=== PATIENT | male | born 1960 | race Caucasian/White ===

== ENCOUNTER 2018-03-06 11:11 | Inpatient (IN) | payer OTHER ==
[~2018-03-06] VITALS: Ht 170.2 cm; Wt 108.9 kg
--- NOTE | 2018-03-06 11:50 | ED CARDIAC/CP/PALPITATIONS ---
History of Present Illness General Chief Complaint: Chest Pain Stated Complaint: CP Source: patient Exam Limitations: no limitations Vital Signs & Intake/Output Vital Signs & Intake/Output Vital Signs Date Time Temp Pulse Resp B/P B/P Pulse O2 O2 Flow FiO2 Mean Ox Delivery Rate 03/06 1451 98.9 93 18 159/91 95 Room Air Room Air 03/06 1225 96 Nasal 2.0L Cannula 03/06 1123 98.2 82 20 135/68 90 Room Air Allergies Coded Allergies: Anesthetics - Amide Type (VARIOUS 03/06/18) Reconcile Medications Lisinopril/Hydrochlorothiazide (Lisinopril-Hctz 20-12.5 MG Tab) 20 MG-12.5 MG TABLET 1 TAB PO DAILY HEART (Reported) Triage Note: PER PT STRTED AT 0300 WITH MID BACK PAIN RADIATING INTO HEAD AND INTO EPIGASTRIC AREA , REPORTS WAS SWEATY AND USUALLY DOES NOT RADIATING TO HEAD Triage Nurses Notes Reviewed? yes Onset: Abrupt Duration: hour(s): (10), constant, continues in ED, getting worse Timing: single episode today Quality/Severity: severe, pressure, sharp Location: epigastric Radiation: back Activities at Onset: none Prior Chest Pain/Card Workup: no prior chest pain, no prior cardiac workup Modifying Factors: Worsens With: movement, palpation. Nitro Today/Relief: no nitro taken today Aspirin Today: 325 mg x 1, provided by ED Associated Symptoms: abdominal pain, back pain HPI: 57-year-old male past medical history hypertension, sleep apnea presents for evaluation of epigastric pain, upper quadrant pain and shortness breath. Patient states symptoms started around 3:00 this morning woke him from sleep. The pain is located initially in the epigastric area radiating up into his chest and head. He has now localized to the epigastric and right upper quadrant area radiating to the back. There are no alleviating or aggravating factors. He no longer has a headache no neck pain. He reports associated shortness of breath and diaphoresis. He is a current every day smoker. He reports cough but no hemoptysis. No fevers no nausea vomiting or diarrhea. He had a normal bowel movement this morning. He does report that he had similar symptoms a few weeks ago with right upper quadrant pain and indigestion that passed on its own. He's never had a heart attack no history of DVT. No lower extremity edema. (Patrick Slade) Past History Travel History Traveled to [place] past 21 day No Medical History Neurological: NONE EENT: NONE Cardiovascular: hypertension Respiratory: SLEEP APNEA Gastrointestinal: NONE Hepatic: NONE Musculoskeletal: NONE Psychiatric: NONE Endocrine: NONE Psychosocial History What is your primary language Japanese Tobacco Use: Never used (Patrick Slade) Medical History Any Pertinent Medical History? see below for history Surgical History Surgical History: unobtainable Family History Hx Contributory? No (Fred Omalley DO) Review of Systems Review of Systems Constitutional: Reports: no symptoms. EENTM: Reports: no symptoms. Respiratory: Reports: short of breath. Cardiovascular: Reports: see HPI, chest pain. GI: Reports: see HPI, abdominal pain. Genitourinary: Reports: no symptoms. Musculoskeletal: Reports: no symptoms. Skin: Reports: no symptoms. Neurological/Psychological: Reports: no symptoms. Hematologic/Endocrine: Reports: no symptoms. Immunologic/Allergic: Reports: no symptoms. All Other Systems: Reviewed and Negative (Patrick Slade) Physical Exam Physical Exam General Appearance: well developed/nourished, no apparent distress, alert, awake Head: atraumatic, normal appearance Eyes: Bilateral: PERRL, EOMI, other (scleral icterus). Ears, Nose, Throat: normal pharynx, normal ENT inspection, hearing grossly normal Neck: normal inspection, supple, full range of motion Respiratory: chest non-tender, no respiratory distress, rhonchi, wheezing Cardiovascular: regular rate/rhythm, normal peripheral pulses Peripheral Pulses: 2+ radial (R), 2+ radial (L) Gastrointestinal: normal bowel sounds, no organomegaly, distention, tenderness ( EPIGASTRIC AND RUQ) Back: normal inspection, normal range of motion Extremities: normal inspection, normal range of motion, no edema Neurologic/Psych: no motor/sensory deficits, awake, alert, oriented x 3, normal gait Skin: intact, normal color, warm/dry Lymphatic: no anterior cervical danie (Patrick Slade) Core Measures ACS in differential dx? No CVA/TIA Diagnosis No Sepsis Present: No Sepsis Focused Exam Completed? No (Fred Omalley DO) Progress Differential Diagnosis: AMI, aortic dissection, cholecystitis, CHF/pulm edema, costochondritis, myocarditis, pancreatitis, pericarditis, pneumonia, pneumothorax, pulmonary embolism, PUD/GERD, PVCs/PACs, gallstone pancreatitis, malignancy Plan of Care: Orders Procedure Date/time Status Nothing by Mouth 03/07 B Active Patient Data 03/06 1648 Active ED Holding Orders 03/06 1634 Active Admit to inpatient 03/06 1634 Active Vital Signs 03/06 1634 Active Code Status 03/06 1634 Active BLOOD CULTURE 03/06 1607 Active TROPONIN LEVEL 03/06 1540 Complete EKG 03/06 1540 Active URINALYSIS 03/06 1506 Active TYPE & SCREEN (NOT X-MATCH) 03/06 1440 Active Add-on Test (ER Only) 03/06 1435 Active Add-on Test (ER Only) 03/06 1255 Active AEROSOL (GEN) 03/06 1227 Complete Add-on Test (ER Only) 03/06 1225 Active Add-on Test (ER Only) 03/06 1223 Active LIPASE 03/06 1140 Complete ETHANOL 03/06 1140 Complete DIRECT BILIRUBIN 03/06 1140 Complete Telemetry/Blow Pit Operator 03/06 1135 Active Add-on Test (ER Only) 03/06 1133 Active TROPONIN LEVEL 03/06 1116 Complete PARTIAL THROMBOPLASTIN TIME 03/06 1116 Complete PROTHROMBIN TIME 03/06 1116 Complete MAGNESIUM 03/06 1116 Complete D-DIMER 03/06 1116 Complete COMPREHENSIVE METABOLIC PANEL 03/06 1116 Complete CBC WITHOUT DIFFERENTIAL 03/06 1116 Complete EKG 03/06 1114 Active Current Medications Sig/Cherie Start time Last Medication Dose Stop Time Status Admin Lactated Ringer's 1,000 ML .Q5H 03/06 1730 AC (Lactated Ringers) Laboratory Tests 03/06/18 1343: Troponin I < 0.01 03/06/18 1140: Anion Gap 16, Estimated GFR > 60, BUN/Creatinine Ratio 17.1, Glucose 183 H, Calcium 9.6, Magnesium 1.8, Total Bilirubin 6.9 H, Direct Bilirubin 5.9 H, AST 208 H, ALT 323 H, Alkaline Phosphatase 365 H, Troponin I < 0.01, Total Protein 6.9, Albumin 4.2, Globulin 2.7, Albumin/Globulin Ratio 1.6, Lipase 4602 H, PT 12.2, INR 1.12, APTT 32, D-Dimer High Sensitivty 5192 H, CBC w Diff MAN DIFF ORDERED, RBC 5.13, MCV 89.8, MCH 30.8, MCHC 34.3, RDW 12.7, MPV 7.7, Gran % 85.3 H, Lymphocytes % 8.8 L, Monocytes % 5.0, Eosinophils % 0.7, Basophils % 0.2, Absolute Granulocytes 14.2 H, Absolute Lymphocytes 1.5, Absolute Monocytes 0.8 H, Absolute Eosinophils 0.1, Absolute Basophils 0, Platelet Estimate INCREASED, Normocytic RBCs VERIFIED, Normochromic RBCs VERIFIED, Serum Alcohol < 10.0 Microbiology 03/06 1705 BLOOD: Blood Culture - RECD 03/06 163 BLOOD: Blood Culture - RECD Patient seen and evaluated. He is here reporting acute onset of epigastric and right-sided chest pain that woke him up from sleep. He states the pain radiates around the side to the back. Associated with shortness of breath. He did have a similar episode a few weeks ago. On initial evaluation patient is satting 90% on room air. Vitals otherwise stable. He has some diffuse wheezing and rhonchi bilaterally. He is a current every day smoker. DuoNeb and aspirin ordered basic blood work and a CT of the chest on the pelvis ordered. Blood work shows a significantly elevated T bili of 7. Direct bili or added on. LFTs elevated. Lipase 4600. White blood cell count 60,000. Patient is afebrile. Suspect gallstone pancreatitis. Waiting on CT scan results. Patient declines any additional pain medications as he is feeling better. Troponin negative EKG unchanged. CTA shows evidence of cholecystitis with possible choledocholithiasis. Spoke with Dr. Malik for general surgery for that the patient needs a GI consult and ERCP before cholecystectomy. Spoke with Dr. Edgar who recommends admission, IV Unasyn and ERCP. Blood cultures ordered. Patient is afebrile still declining pain medication. CTA of the chest was nondiagnostic for PE. Patient does have a significant elevated d-dimer of 5000 and was mildly hypoxic and short of breath on initial evaluation. He has no DVT risk factors. No lower extremity edema or recent surgery. A VQ scan was ordered however patient refused this. He is alert and oriented 3 he is able to make this decision. Discussed with him about the potential life-threatening results of PE. He understands this risk and still declines. Repeat EKG and troponin negative and unchanged. Patient will be admitted for IV antibiotics, ERCP, GI consult, surgical consult, serial labs, IV fluids, IV pain meds, nothing by mouth. Case discussed with Dr. Omalley he agrees. Diagnostic Imaging: Viewed by Me: Radiology Read. Discussed w/RAD: Radiology Read. CXR Impression: PATIENT: ROBERT ELLIOTT PRESENT AGE : 57 PATIENT ACCOUNT NO: [id number] : 62 LOCATION: [facility] ORDERING PHYSICIAN: Patrick THOMAS SERVICE DATE: 03/06/18 EXAM TYPE: RAD - XRY- CHEST XRAY, TWO VIEWS EXAMINATION: XR CHEST CLINICAL INFORMATION: Back pain, cough, and low saturations. COMPARISON: None available. TECHNIQUE: 2 views of the chest were obtained. FINDINGS: There is symmetric lung inflation. There is no focal consolidation, pleural effusion, or pneumothorax. Aorta is tortuous and a CTA has been ordered at the time of this study. There are no acute osseous findings. Thoracic spondylosis. IMPRESSION: No acute pulmonary process. DICTATED BY: Fred Langford MD DATE/TIME DICTATED:03/06/181304 [place] MACHINE OPERATOR: REY DATE/TIME TRANSCRIBED:03/06/181304 CONFIDENTIAL, DO NOT COPY WITHOUT APPROPRIATE AUTHORIZATION. <Electronically signed in Other Vendor System> SIGNED BY: Fred Langford MD 03/06/181310 Initial ED EKG: normal sinus rhythm, left atrial abn, ivcd (Patrick Slade) Departure Departure Disposition: STILL A PATIENT Condition: Stable Clinical Impression Primary Impression: Obstructive jaundice Secondary Impressions: Gallstone pancreatitis Referrals: Ike Cortez MD (PCP/Family) Departure Forms: Customer Survey General Discharge Information Admission Note Spoke With: Nova GAUTAM,Marquez Documentation of Exam: Documentation of any treatments & extenuating circumstances including Concerns Regarding Discharge (functional status, medication knowledge or non-compliance, living conditions, etc.) that warrant an admission rather than observation: [IV antibiotics, GI consult, surgical consult, ERCP, serial labs, nothing by mouth, IV fluids] (Patrick Slade) PA/MICROSTRATEGY ARCHITECT DEVELOPER Co-Sign Statement Statement: ED Attending supervision documentation- [X] I saw and evaluated the patient. I have also reviewed all the pertinent lab results and diagnostic results. I agree with the findings and the plan of care as documented in the PA's/MICROSTRATEGY ARCHITECT DEVELOPER's documentation. [] I have reviewed the ED Record and agree with the PA's/MICROSTRATEGY ARCHITECT DEVELOPER's documentation. [] Additions or exceptions (if any) to the PAs/MICROSTRATEGY ARCHITECT DEVELOPER's note and plan are summarized below: [ I've seen and personally examined the patient and I agree with the PAs evaluation. He was in mild distress on my evaluation. He complained of bilateral upper abdominal pain] (Fred Omalley DO) Critical Care Note Critical Care Note Critical Care Time: non-applicable (Fred Omalley DO)
[2018-03-06 11:51] LABS: ABSOLUTE BASOPHIL COUNT 0 /CUMM (0.0-0.2); ABSOLUTE EOSINOPHIL COUNT 0.1 /CUMM (0.0-0.7); ABSOLUTE GRANULOCYTE CT 14.2 /CUMM (1.4-6.5); ABSOLUTE LYMPH COUNT 1.5 /CUMM (1.2-3.4); ABSOLUTE MONOCYTE COUNT 0.8 /CUMM (0.10-0.60); BASOPHIL % 0.2 % (0.0-2.0); EOSINOPHIL % 0.7 % (0-5); GRANULOCYTE % 85.3 % (42.2-75.2); HEMATOCRIT 46.1 % (42-52); MEAN CORPUSCULAR HGB 30.8 PG (27.0-31.0); MEAN CORPUSCULAR HGB CONC 34.3 G/DL (33.0-37.0); MEAN CORPUSCULAR VOLUME 89.8 FL (80.0-94.0); MEAN PLATELET VOLUME 7.7 FL (7.4-10.4); PLATELET COUNT 425 /CUMM (130-400); RBC DISTRIBUTION WIDTH 12.7 % (11.5-14.5); RED BLOOD CELL CT 5.13 /CUMM (4.70-6.10); WHITE BLOOD CELL COUNT 16.6 /CUMM (4.8-10.8)
[2018-03-06] MEDS ORDERED: LISINOPRIL-HCT1 EACH PO (12:03)
[2018-03-06 12:36] LABS: PT 12.2 SEC (9.4-12.5)
[2018-03-06 12:37] LABS: PTT 32 SEC (25-37)
--- NOTE | 2018-03-06 13:11 | RADIOLOGY REPORT ---
EXAMINATION: XR CHEST CLINICAL INFORMATION: Back pain, cough, and low saturations. COMPARISON: None available. TECHNIQUE: 2 views of the chest were obtained. FINDINGS: There is symmetric lung inflation. There is no focal consolidation, pleural effusion, or pneumothorax. Aorta is tortuous and a CTA has been ordered at the time of this study. There are no acute osseous findings. Thoracic spondylosis. IMPRESSION: No acute pulmonary process.
--- NOTE | 2018-03-06 14:12 | CT SCAN REPORT ---
EXAMINATION: CT ANGIOGRAM OF THE CHEST WITH AND WITHOUT CONTRAST (CT PULMONARY ANGIOGRAM FOR PE) CT ABDOMEN AND PELVIS WITH CONTRAST CLINICAL INFORMATION: Right-sided chest pain. Right upper quadrant pain for one day. COMPARISON: Chest radiograph from today. TECHNIQUE: Prior to contrast administration, noncontrast localization images were obtained. Subsequently, multidetector volumetric imaging was performed from the thoracic inlet to below the diaphragms following the administration of 95 mL Optiray 320 intravenous contrast. This was followed by multidetector acquisition of the abdomen and pelvis. No contrast reaction reported Sagittal, coronal, and MIP oblique sagittal reformatted images were obtained on the CT workstation, uploaded to PACS, and reviewed. Total exam dose-length product 1479 mGy-cm FINDINGS: QUALITY OF STUDY/CONTRAST BOLUS: Suboptimal. Contrast is within the aorta, with minimal contrast in the pulmonary arterial system. PULMONARY ARTERIES: No gross evidence of central pulmonary embolism. There is insufficient opacification of the lobar branches and distally to be diagnostic. THORACIC AORTA: No aneurysm or dissection. LUNG: The central airways are patent. There is no dense consolidation. Minimal bibasilar atelectasis. No suspicious pulmonary nodules. PLEURA: No pleural effusion or pneumothorax. MEDIASTINUM: Normal heart size. No pericardial effusion. No hilar or mediastinal lymphadenopathy. No evidence of septal bowing or right heart strain. CHEST WALL/AXILLA: No axillary or internal mammary lymphadenopathy. LIVER, GALLBLADDER, AND BILIARY TREE: The liver is normal in size, shape, and attenuation. No focal hepatic lesion or biliary ductal dilatation is present. Multiple gallstones are seen within the gallbladder lumen. There is suggestion of faint pericholecystic stranding. The common bile duct is prominent, measuring 1 cm. No definite filling defects are seen. PANCREAS: Unremarkable. SPLEEN: Unremarkable. ADRENAL GLANDS: Unremarkable. KIDNEYS AND URETERS: The kidneys are normal in size, shape, and attenuation. No hydronephrosis, hydroureter, or calculi seen. No perinephric stranding. BLADDER: Unremarkable. GASTROINTESTINAL TRACT: Small hiatal hernia. The stomach is otherwise unremarkable. The small bowel is normal in caliber. There is no obstruction. Normal appendix. No colonic wall thickening or inflammatory change. There is diverticulosis of the descending and sigmoid colon without evidence of diverticulitis. No free air or free fluid. ABDOMINAL WALL: No significant hernia is appreciated. LYMPH NODES: Normal. VASCULAR: Normal caliber aorta. Mild atherosclerotic calcifications. PELVIC VISCERA: The prostate and seminal vesicles are unremarkable. OSSEOUS STRUCTURES: No acute or suspicious osseous abnormality. Mild degenerative changes are seen in the spine. IMPRESSION: 1. Nondiagnostic evaluation of the pulmonary arteries. No central pulmonary embolism. 2. Cholelithiasis. Suggestion of faint pericholecystic inflammatory stranding. There is also dilatation of the common bile duct. This raises suspicion for acute cholecystitis. Ultrasound could be performed to further evaluate. VTE: indeterminate
--- NOTE | 2018-03-06 15:47 | Cons- General Surgery ---
General Information and HPI Consulting Request Date of Consult: 03/06/18 Requested By: MARTHA infante ER Reason for Consult: Choledocholithiasis History of Present Illness: This is a 57-year-old male who relates 2 week history of progressive abdominal pain. He describes onset of epigastric abdominal pain 2 weeks ago. He complained of postprandial nausea and worsening of his pain. He noted that his urine became orange in color. He discussed the matter with his mother who is a nurse. She instructed him to go see a physician regarding possible gallstone origin of his symptoms. Patient elected to watch his symptoms and earlier today had severe abdominal pain in the epigastrium/sternum and right upper quadrant that was much more severe than prior. While the ER there is concern about cardiopulmonary process. Appropriate evaluation is been obtained and there is no evidence of the VTE AK. CT scan showed bili ductal dilatation and mild distention inflammatory changes in his gallbladder. Allergies/Medications Allergies: Coded Allergies: Anesthetics - Amide Type (VARIOUS 03/06/18) Home Med List: Lisinopril/Hydrochlorothiazide (Lisinopril-Hctz 20-12.5 MG Tab) 20 MG-12.5 MG TABLET 1 TAB PO DAILY HEART (Reported) Current Medications: Current Medications Sig/Cherie Start time Last Medication Dose Route Stop Time Status Admin Albuterol Sulfate 3 ML ONCE ONE 03/06 1145 DC 03/06 INH 03/06 1146 1218 Aspirin 0 .STK-MED ONE 03/06 1251 DC PO Aspirin 325 MG ONCE ONE 03/06 1145 DC 03/06 PO 03/06 1146 1248 Ipratropium [place] 2.5 ML ONCE ONE 03/06 1145 DC 03/06 INH 03/06 1146 1218 Sodium Chloride 1,000 ML BOLUS ONE 03/06 1345 DC 03/06 IV 03/06 1444 1523 Past History Medical History Neurological: NONE EENT: NONE Cardiovascular: hypertension Respiratory: COPD, SLEEP APNEA Gastrointestinal: NONE Hepatic: NONE Musculoskeletal: malignant hyperthermia Psychiatric: NONE Endocrine: obesity Surgical History Pertinent Surgical History: tonsils and adenoids, septoplasty, uvulopalatoplasty Review of Systems Review of Systems: Mild exertional dyspnea. No exertional chest pain. Abdominal pain per HPI. Intermittent lower extremity edema. No claudication. Remainder 12 points negative Exam & Diagnostic Data Vital Signs and I&O Vital Signs Date Time Temp Pulse Resp B/P B/P Pulse O2 O2 Flow FiO2 Mean Ox Delivery Rate 03/06 1451 98.9 93 18 159/91 95 Room Air Room Air 03/06 1225 96 Nasal 2.0L Cannula 03/06 1123 98.2 82 20 135/68 90 Room Air Intake & Output 03/06 1600 03/06 0800 03/06 0000 03/05 1600 03/05 0800 03/05 0000 Intake Total Output Total Balance Patient 240 lb Weight Physical Exam: Gen.: He is obese he looks his stated age she is in no distress. HEENT: Mild scleral icterus. Skin is jaundiced mucous membranes are pink and moist Chest: Nontender normal excursion normal effort audible rhonchi Abdomen: Soft and tender epigastrium and right upper quadrant with involuntary guarding and positive Phipps sign obese Extremities: Trace pretibial edema no cyanosis or clubbing Last 24 Hours of Labs: Laboratory Tests 03/06 03/06 1343 1140 Chemistry Sodium (137 - 145 mmol/L) 137 Potassium (3.5 - 5.1 mmol/L) 3.6 Chloride (98 - 107 mmol/L) 99 Carbon Dioxide (22 - 30 mmol/L) 23 Anion Gap (5 - 16) 16 BUN (9 - 20 mg/dL) 12 Creatinine (0.7 - 1.2 mg/dL) 0.7 Estimated GFR (>60 ml/min) > 60 BUN/Creatinine Ratio (7 - 25 %) 17.1 Glucose (65 - 99 mg/dL) 183 H Calcium (8.4 - 10.2 mg/dL) 9.6 Magnesium (1.6 - 2.3 mg/dL) 1.8 Total Bilirubin (0.2 - 1.3 mg/dL) 6.9 H Direct Bilirubin (< 0.4 mg/dL) 5.9 H AST (17 - 59 U/L) 208 H ALT (21 - 72 U/L) 323 H Alkaline Phosphatase (< 127 U/L) 365 H Troponin I (<0.11 ng/ml) < 0.01 < 0.01 Total Protein (6.3 - 8.2 g/dL) 6.9 Albumin (3.5 - 5.0 g/dL) 4.2 Globulin (1.9 - 4.2 gm/dL) 2.7 Albumin/Globulin Ratio (1.1 - 2.2 %) 1.6 Lipase (23 - 300 U/L) 4602 H Coagulation PT (9.4 - 12.5 SEC) 12.2 INR (0.90 - 1.17) 1.12 APTT (25 - 37 SEC) 32 D-Dimer High Sensitivty (0 - 243 ng/ml) 5192 H Hematology CBC w Diff MAN DIFF ORDERED WBC (4.8 - 10.8 /CUMM) 16.6 H RBC (4.70 - 6.10 /CUMM) 5.13 Hgb (14.0 - 18.0 G/DL) 15.8 Hct (42 - 52 %) 46.1 MCV (80.0 - 94.0 FL) 89.8 MCH (27.0 - 31.0 PG) 30.8 MCHC (33.0 - 37.0 G/DL) 34.3 RDW (11.5 - 14.5 %) 12.7 Plt Count (130 - 400 /CUMM) 425 H MPV (7.4 - 10.4 FL) 7.7 Gran % (42.2 - 75.2 %) 85.3 H Lymphocytes % (20.5 - 51.1 %) 8.8 L Monocytes % (1.7 - 9.3 %) 5.0 Eosinophils % (0 - 5 %) 0.7 Basophils % (0.0 - 2.0 %) 0.2 Absolute Granulocytes (1.4 - 6.5 /CUMM) 14.2 H Absolute Lymphocytes (1.2 - 3.4 /CUMM) 1.5 Absolute Monocytes (0.10 - 0.60 /CUMM) 0.8 H Absolute Eosinophils (0.0 - 0.7 /CUMM) 0.1 Absolute Basophils (0.0 - 0.2 /CUMM) 0 Platelet Estimate (ADEQUATE) INCREASED Normocytic RBCs VERIFIED Normochromic RBCs VERIFIED Toxicology Serum Alcohol (<10 MG/DL) < 10.0 Assessment/Plan Assessment/Plan This is an obese male who presents with abdominal pain and jaundice. Physical examination and laboratory data consistent with biliary obstruction likely due to stone disease. There is concerned about the development of ascending cholangitis, however there is no evidence of it clinically now. Recommend admission to the medical service and GI consultation for potential ERCP. Ideally laparoscopic cholecystectomy should be performed after clearance of his common bile duct. 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 She's had previous surgeries at [facility] and feels more comfortable with anesthesia there. Currently there is no plan for surgical intervention. After his bile duct has been cleared he can be discharged home and follow-up with a surgeon in [place]. Copies To: Ike Cortez MD Consult Acknowledgment - Thank you for your consult request.
--- NOTE | 2018-03-06 16:30 | Cons- Gastroenterology ---
General Information and HPI Consulting Request Date of Consult: 03/06/18 Requested By: MARTHA Ruff Reason for Consult: Increased LFTs, gallstone pancreatitis. Source of Information: patient Exam Limitations: no limitations History of Present Illness: Mr. Baron is a 57 year old male with a PMH of COPD and ARTEM who presented to today with complaints of acute onset of abdominal pain. He notes that he developed severe mid-epigastric abdominal pain associated with back pain which he notes was similar to an attack he had several weeks ago, albeit the pain this time was more severe. He has not had any significant vomiting and he denies any high fevers. He notes that with the last episode his urine became dark, but he hasn't noticed that this time and he has been without any aramis colored stool. He is without any noticable jaundcie. He also denies any constipation or current loose stool. In the ER he was hemodynamically stable and afebrile. He also notes that his pain is markedly imporved from this morning. He was noted to have an elevated WBC, lipase and LFTs and he also had a ct scan which showed a normal pancrteas with dilated bile ducts. He has had blood cultures done and he is about to be started on IV unasyn. Allergies/Medications Allergies: Coded Allergies: Anesthetics - Amide Type (VARIOUS 03/06/18) Home Med List: Lisinopril/Hydrochlorothiazide (Lisinopril-Hctz 20-12.5 MG Tab) 20 MG-12.5 MG TABLET 1 TAB PO DAILY HEART (Reported) Current Medications: Current Medications Sig/Cherie Start time Last Medication Dose Route Stop Time Status Admin Albuterol Sulfate 3 ML ONCE ONE 03/06 1145 DC 03/06 INH 03/06 1146 1218 Ampicillin Sodium/ 0 .STK-MED ONE 03/06 1629 DC Sulbactam Sodium .ROUTE Ampicillin Sodium/ 3,000 MG ONCE ONE 03/06 1615 AC Sulbactam Sodium IV 03/06 1644 Sodium Chloride 100 ML Aspirin 0 .STK-MED ONE 03/06 1251 DC PO Aspirin 325 MG ONCE ONE 03/06 1145 DC 03/06 PO 03/06 1146 1248 Ipratropium [place] 2.5 ML ONCE ONE 03/06 1145 DC 03/06 INH 03/06 1146 1218 Sodium Chloride 1,000 ML BOLUS ONE 03/06 1345 DC 03/06 IV 03/06 9729 1523 Past History Travel History Traveled to [place] past 21 day No Medical History Neurological: NONE EENT: NONE Cardiovascular: hypertension Respiratory: COPD, SLEEP APNEA Gastrointestinal: NONE Hepatic: NONE Musculoskeletal: NONE Psychiatric: NONE Endocrine: NONE Surgical History Surgical History: tonsils and adenoids, septoplasty, uvulopalatoplasty Review of Systems Review of Systems Constitutional: Denies: fever, malaise, weakness, unexplained weight loss. EENTM: Denies: no symptoms. Cardiovascular: Reports: chest pain. Denies: edema. Respiratory: Reports: short of breath. Denies: cough, hemoptysis, sputum production. GI: Reports: see HPI. Genitourinary: Denies: no symptoms. Musculoskeletal: Denies: no symptoms. Skin: Denies: jaundice. Neurological/Psychological: Denies: no symptoms. Hematologic/Endocrine: Denies: no symptoms. Immunologic/Allergic: Denies: no symptoms. All Other Systems: Reviewed and Negative Exam & Diagnostic Data Vital Signs and I&O Vital Signs Date Time Temp Pulse Resp B/P B/P Pulse O2 O2 Flow FiO2 Mean Ox Delivery Rate 03/06 1451 98.9 93 18 159/91 95 Room Air Room Air 03/06 1225 96 Nasal 2.0L Cannula 03/06 1123 98.2 82 20 135/68 90 Room Air Intake & Output 03/06 1600 03/06 0400 03/05 1600 03/05 0400 03/04 1600 03/04 0400 Intake Total Output Total Balance Patient 240 lb Weight Physical Exam General Appearance: well developed/nourished, no apparent distress, alert, awake , comfortable, obese Head: atraumatic, normal appearance Eyes: Bilateral: other (scleral icterus). Ears, Nose, Throat: normal pharynx, normal ENT inspection Neck: normal inspection, supple, full range of motion Respiratory: normal breath sounds, chest non-tender, no respiratory distress Gastrointestinal: normal bowel sounds, soft, tenderness, tenderness in RUQ Rectal: deferred Back: normal inspection, normal range of motion Extremities: normal inspection, no edema Neurologic/Psych: no motor/sensory deficits, awake, alert, oriented x 3 Skin: intact, normal color, warm/dry Results Pertinent Lab Results: Laboratory Tests 03/06 03/06 1343 1140 Chemistry Sodium (137 - 145 mmol/L) 137 Potassium (3.5 - 5.1 mmol/L) 3.6 Chloride (98 - 107 mmol/L) 99 Carbon Dioxide (22 - 30 mmol/L) 23 Anion Gap (5 - 16) 16 BUN (9 - 20 mg/dL) 12 Creatinine (0.7 - 1.2 mg/dL) 0.7 Estimated GFR (>60 ml/min) > 60 BUN/Creatinine Ratio (7 - 25 %) 17.1 Glucose (65 - 99 mg/dL) 183 H Calcium (8.4 - 10.2 mg/dL) 9.6 Magnesium (1.6 - 2.3 mg/dL) 1.8 Total Bilirubin (0.2 - 1.3 mg/dL) 6.9 H Direct Bilirubin (< 0.4 mg/dL) 5.9 H AST (17 - 59 U/L) 208 H ALT (21 - 72 U/L) 323 H Alkaline Phosphatase (< 127 U/L) 365 H Troponin I (<0.11 ng/ml) < 0.01 < 0.01 Total Protein (6.3 - 8.2 g/dL) 6.9 Albumin (3.5 - 5.0 g/dL) 4.2 Globulin (1.9 - 4.2 gm/dL) 2.7 Albumin/Globulin Ratio (1.1 - 2.2 %) 1.6 Lipase (23 - 300 U/L) 4602 H Coagulation PT (9.4 - 12.5 SEC) 12.2 INR (0.90 - 1.17) 1.12 APTT (25 - 37 SEC) 32 D-Dimer High Sensitivty (0 - 243 ng/ml) 5192 H Hematology CBC w Diff MAN DIFF ORDERED WBC (4.8 - 10.8 /CUMM) 16.6 H RBC (4.70 - 6.10 /CUMM) 5.13 Hgb (14.0 - 18.0 G/DL) 15.8 Hct (42 - 52 %) 46.1 MCV (80.0 - 94.0 FL) 89.8 MCH (27.0 - 31.0 PG) 30.8 MCHC (33.0 - 37.0 G/DL) 34.3 RDW (11.5 - 14.5 %) 12.7 Plt Count (130 - 400 /CUMM) 425 H MPV (7.4 - 10.4 FL) 7.7 Gran % (42.2 - 75.2 %) 85.3 H Lymphocytes % (20.5 - 51.1 %) 8.8 L Monocytes % (1.7 - 9.3 %) 5.0 Eosinophils % (0 - 5 %) 0.7 Basophils % (0.0 - 2.0 %) 0.2 Absolute Granulocytes (1.4 - 6.5 /CUMM) 14.2 H Absolute Lymphocytes (1.2 - 3.4 /CUMM) 1.5 Absolute Monocytes (0.10 - 0.60 /CUMM) 0.8 H Absolute Eosinophils (0.0 - 0.7 /CUMM) 0.1 Absolute Basophils (0.0 - 0.2 /CUMM) 0 Platelet Estimate (ADEQUATE) INCREASED Normocytic RBCs VERIFIED Normochromic RBCs VERIFIED Toxicology Serum Alcohol (<10 MG/DL) < 10.0 Imaging/Other Studies: SERVICE DATE: 03/06/18 EXAM TYPE: CAT - CT ABD & PELVIS W IV CONTRAST; CTA CHEST-PULMONARY EMBOLISM EXAMINATION: CT ANGIOGRAM OF THE CHEST WITH AND WITHOUT CONTRAST (CT PULMONARY ANGIOGRAM FOR PE) CT ABDOMEN AND PELVIS WITH CONTRAST CLINICAL INFORMATION: Right-sided chest pain. Right upper quadrant pain for one day. COMPARISON: Chest radiograph from today. TECHNIQUE: Prior to contrast administration, noncontrast localization images were obtained. Subsequently, multidetector volumetric imaging was performed from the thoracic inlet to below the diaphragms following the administration of 95 mL Optiray 320 intravenous contrast. This was followed by multidetector acquisition of the abdomen and pelvis. No contrast reaction reported Sagittal, coronal, and MIP oblique sagittal reformatted images were obtained on the CT workstation, uploaded to PACS, and reviewed. Total exam dose-length product 1479 mGy-cm FINDINGS: QUALITY OF STUDY/CONTRAST BOLUS: Suboptimal. Contrast is within the aorta, with minimal contrast in the pulmonary arterial system. PULMONARY ARTERIES: No gross evidence of central pulmonary embolism. There is insufficient opacification of the lobar branches and distally to be diagnostic. THORACIC AORTA: No aneurysm or dissection. LUNG: The central airways are patent. There is no dense consolidation. Minimal bibasilar atelectasis. No suspicious pulmonary nodules. PLEURA: No pleural effusion or pneumothorax. MEDIASTINUM: Normal heart size. No pericardial effusion. No hilar or mediastinal lymphadenopathy. No evidence of septal bowing or right heart strain. CHEST WALL/AXILLA: No axillary or internal mammary lymphadenopathy. LIVER, GALLBLADDER, AND BILIARY TREE: The liver is normal in size, shape, and attenuation. No focal hepatic lesion or biliary ductal dilatation is present. Multiple gallstones are seen within the gallbladder lumen. There is suggestion of faint pericholecystic stranding. The common bile duct is prominent, measuring 1 cm. No definite filling defects are seen. PANCREAS: Unremarkable. SPLEEN: Unremarkable. ADRENAL GLANDS: Unremarkable. KIDNEYS AND URETERS: The kidneys are normal in size, shape, and attenuation. No hydronephrosis, hydroureter, or calculi seen. No perinephric stranding. BLADDER: Unremarkable. GASTROINTESTINAL TRACT: Small hiatal hernia. The stomach is otherwise unremarkable. The small bowel is normal in caliber. There is no obstruction. Normal appendix. No colonic wall thickening or inflammatory change. There is diverticulosis of the descending and sigmoid colon without evidence of diverticulitis. No free air or free fluid. ABDOMINAL WALL: No significant hernia is appreciated. LYMPH NODES: Normal. VASCULAR: Normal caliber aorta. Mild atherosclerotic calcifications. PELVIC VISCERA: The prostate and seminal vesicles are unremarkable. OSSEOUS STRUCTURES: No acute or suspicious osseous abnormality. Mild degenerative changes are seen in the spine. IMPRESSION: 1. Nondiagnostic evaluation of the pulmonary arteries. No central pulmonary embolism. 2. Cholelithiasis. Suggestion of faint pericholecystic inflammatory stranding. There is also dilatation of the common bile duct. This raises suspicion for acute cholecystitis. Ultrasound could be performed to further evaluate. VTE: indeterminate Assessment/Plan Assessment/Recommendations: Assessment: Mr. Baron is a 57 year old male who presents with gallstone pancreatitis and possible cholecystitis/cholangitis. He appears to have had an acute episode today and it also sounds like he had another episode a few weeks ago so it is possible the biliary dilation that is appreciated now may be from choledocolithiasis from a few weeks ago considering he noted dark urine at that time. Regardless, he appears rather comfortable now so it is possible he has passed the stones and if he did an ERCP may not be necessary, but considering his bilirubin right now is 7 I feel this is unlikely. While his lipase is moderately elevated he doesn't have significant inflammatory changes around his pancreas on his ct scan, but I feel he should at least have a period of bowel rest. His increased WBC may also just be reactive to the pain, but would still cover him with antibiotics for now. Recommendations: 1. Admit to medical service and keep NPO and hydrate with lacated ringers solution at 200cc/hr x 24-48 hours and then re-evalute volume status 2. Analgesia as needed 3. Continue IV unasyn for now and follow up blood culture results 4. Follow up am LFTs and if bilirubin markedly improved would then check an MRCP to evaluate for any residual choledocolithiasis 5. If am bilirubin is elevated or not significant changed will then arrange for a therapeutic ERCP later in the day 6. Notify GI for signs of cholangitis with high fevers or any decrease in BP in which case an ERCP will be expedited 7. Surgical follow up for ultimate CCY I will continue to follow this patient and make further recommendations based on his clinical course and results of repeat blood work and any further imaging if it is obtained. Problem List: 1. Gallstone pancreatitis 2. Acute cholecystitis 3. Acute pancreatitis 4. Obstructive jaundice Consult Acknowledgment - Thank you for your consult request.
--- NOTE | 2018-03-06 17:08 | History & Physical ---
Sanford Briggs MD,[facility] 03/06/18 1707: General Information and HPI MD Statement: I have seen and personally examined ROBERT ELLIOTT and documented this H&P. The patient is a 57 year old M who presented with a patient stated chief complaint of [chest pain]. Source of Information: patient Exam Limitations: no limitations History of Present Illness: Please see notefrom resident for H and P. Allergies/Medications Allergies: Coded Allergies: Anesthetics - Amide Type (VARIOUS 03/06/18) Past History Travel History Traveled to [place] past 21 day No Medical History Neurological: NONE EENT: NONE Cardiovascular: hypertension Respiratory: COPD, SLEEP APNEA Gastrointestinal: NONE Hepatic: NONE Musculoskeletal: malignant hyperthermia Psychiatric: NONE Endocrine: obesity Surgical History Surgical History: tonsils and adenoids, septoplasty, uvulopalatoplasty Review of Systems Review of Systems Constitutional: Reports: see HPI. Exam & Diagnostic Data Last 24 Hrs of Vital Signs/I&O Vital Signs Date Time Temp Pulse Resp B/P B/P Pulse O2 O2 Flow FiO2 Mean Ox Delivery Rate 03/06 1451 98.9 93 18 159/91 95 Room Air Room Air 03/06 1225 96 Nasal 2.0L Cannula 03/06 1123 98.2 82 20 135/68 90 Room Air Intake & Output 03/06 1600 03/06 0800 03/06 0000 Intake Total Output Total Balance Patient 240 lb Weight Assessment/Plan As Ranked By This Provider Problem List: 1. Acute pancreatitis Qualifiers Pancreatitis type: unspecified pancreatitis type Acute pancreatitis complication: unspecified Qualified Code: K85.90 - Acute pancreatitis without necrosis or infection, unspecified 2. Gallstone pancreatitis Core Measures/Misc (07/29) Acute Coronary Syndrome ACS Diagnosis: No Congestive Heart Failure Congestive Heart Failure Diagnosis No Cerebrovascular Accident CVA/TIA Diagnosis: No VTE (View Protocol) VTE Risk Factors Age>40 No Mechanical VTE Prophylaxis d/t N/A MechProphylax Ordered No VTE Pharm Prophylaxis d/t NA PharmProphylax ordered Sepsis (View protocol) Sepsis Present: No Nova GAUTAM,[facility] 03/06/18 1814: Attending MD Review Statement Attending Statement Attending MD Statement: examined this patient, discuss w/resident/PA/ULTRA SOUND TECHNICIAN, discussed with family, reviewed EMR data (avail) Attending Assessment/Plan: Patient personally seen and examined in the emergency room. Case discussed with the admitting resident. Patient's 57-year-old male with past history hypertension currently on lisinopril who presents with right upper quadrant and epigastric severe pain started early today. He is currently afebrile with stable vital signs. Urine ED workup he was noted to have elevated bilirubin and increased white cell count. CT chest was negative for pulmonary embolism. His lipase is elevated and LFTs are elevated bilirubin of 6.9. CT abdomen shows cholelithiasis with pericholecystic inflammatory stranding and dilation of common bile duct. Chest x-ray did not show any acute process. His repeat EKG shows a T-wave inversions. Assessment plan * Gallstone pancreatitis * Cholelithiasis * Suspected ascending cholangitis * History of hypertension * EKG changes likely related to pancreatitis and his troponins are negative Plan * Admit to telemetry * Keep nothing by mouth and start IV fluids * Unasyn 3 g every 6 IV * Possible ERCP tomorrow * Patient has been seen by GI * Check 2 more sets of troponin and repeat EKG tomorrow Zeus GAUTAM,[facility] 03/06/181955: General Information and HPI Allergies/Medications Home Med list Ciprofloxacin HCl (Cipro) 500 MG TABLET 1 TAB PO BID infection . Lisinopril/Hydrochlorothiazide (Lisinopril-Hctz 20-12.5 MG Tab) 20 MG-12.5 MG TABLET 1 TAB PO DAILY HEART (Reported) Metronidazole (Flagyl) 500 MG TABLET 1 TAB PO TID INFECTION . Resident Review Statement Resident Statement: examined this patient, discussed with internet architect, reviewed images Other Findings: Patient is a 57-year-old male with past medical history significant for obstructive sleep apnea status post uvulopalatoplasty and on CPAP, hypertension who presented to ED with chief complaint of sudden onset epigastric abdominal pain radiated to the back. Patient reported that he had an important meeting this morning where he had most of the toe, on his way home he had sudden onset of epigastric abdominal pain radiated to the back associated with shortness of breath and diaphoresis. Patient called ambulance when he reached home and was brought to the hospital however pain suddenly resolved without getting any pain medication. Patient denied any previous similar attack, nausea, vomiting, diarrhea or constipation, he reported blotting.. He reported dark urine couple of weeks ago that resolved, no jaundice or aramis colored stool. Patient does not have any previous history of gallstone. Denied any blood in urine or stool. Patient was evaluated by GI and surgery in the ED. Patient was initially admitted to general med however he had EKG changes of T- wave inversion in lateral leads, tropes negative 2. Patient will be admitted to telemetry floor for continuous cardiac monitoring. Problem list Gallbladder stone Pancreatitis with elevated lipase however no signs of inflammation on CAT scan Elevated d-dimer with indeterminate CTA Hypertension Obstructive sleep apnea Plan Admit to telemetry floor Vitals every shift Tropes and EKG at 21:00 We will obtain lower extremity ultrasound to rule out DVT since CTA is indetermined Continue to keep n.p.o. Repeat BMP, CBCs and liver function test in a.m. GI recommendation was noted, continue IV Unasyn and Ringer lactate 200 cc/h for 24-48 hours and then reevaluate volume status Notify GI for any signs of cholangitis with high fever or any decrease in blood pressure for ERCP Code full DVT prophylaxis Lovenox
--- NOTE | 2018-03-06 18:14 | Admission Certification ---
Admission Certification Certification Statement - As attending physician, I certify that at the time of - admission, based on clinical presentation, severity of - symptoms, need for further diagnostic testing and - therapeutic interventions, and risk of adverse outcomes - without in-hospital treatment, in my clinical assessment, - this patient requires an acute hospital stay for a minimum - of two nights or longer. I have also considered psychsocial - factors such as support system, advanced age, financial - issues, cognitive issues, and failed out-patient treatments, - past re-admission history, safety of patient, and lack of - compliance as applicable. Specific rationale supporting this admission is: Acute gallstone pancreatitis
[2018-03-06 20:07] VITALS: BP 140/78
--- NOTE | 2018-03-06 21:25 | ULTRASOUND REPORT ---
EXAMINATION: US TRIPLEX OF LOWER EXTREMITIES, BILATERAL CLINICAL INFORMATION: Chest pain. Possible thromboembolic disease. Nondiagnostic chest CT pulmonary angiography test. COMPARISON: None TECHNIQUE: Color-flow triplex imaging with spectral analysis and compression Doppler were performed on the lower extremities. FINDINGS: The common femoral vein is compressible and exhibits a normal phasic waveform, bilaterally; this suggests that the iliac veins are widely patent above. Within each proximal thigh, the visualized profunda femoris vein is patent. The visualized greater saphenous veins and saphenofemoral junctions are normal. Superficial femoral vein is patent in the proximal, mid and distal aspect of each thigh. Popliteal vein appears normal to the level of the trifurcation, bilaterally, and the visualized calf veins are unremarkable. No evidence of Mack's cyst. IMPRESSION: No evidence of deep vein thrombosis in either lower extremity.
[2018-03-07 04:10] LABS: ABSOLUTE BASOPHIL COUNT 0 /CUMM (0.0-0.2); ABSOLUTE EOSINOPHIL COUNT 0.1 /CUMM (0.0-0.7); ABSOLUTE MONOCYTE COUNT 0.6 /CUMM (0.10-0.60); BASOPHIL % 0 % (0.0-2.0); EOSINOPHIL % 0.7 % (0-5); GRANULOCYTE % 78.4 % (42.2-75.2); MEAN CORPUSCULAR HGB 30.9 PG (27.0-31.0); MEAN CORPUSCULAR HGB CONC 34.3 G/DL (33.0-37.0); MEAN CORPUSCULAR VOLUME 90.1 FL (80.0-94.0); MEAN PLATELET VOLUME 8.1 FL (7.4-10.4); PLATELET COUNT 304 /CUMM (130-400); RED BLOOD CELL CT 4.35 /CUMM (4.70-6.10); WHITE BLOOD CELL COUNT 12.8 /CUMM (4.8-10.8)
[2018-03-07 04:14] LABS: HEMATOCRIT 39.2 % (42-52)
[2018-03-07 06:45] VITALS: BP 170/86
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
--- NOTE | 2018-03-07 09:00 | PN- Housestaff ---
Gisela Olivo MD 03/07/18 0859: Subjective Follow-up For: Gallbladder stone Pancreatitis with elevated lipase however no signs of inflammation on CAT scan Elevated d-dimer with indeterminate CTA Hypertension Obstructive sleep apnea Complaints: no complaints Tele-Events Since Last Visit: Sinus rhythm 81-96 Subjective: Patient notes no pain this morning, no shortness of breath, no nausea, no vomiting. He has had no diarrhea as well. Vitals are stable overnight except for some high blood pressure 170/86 which is decreased this morning to 150/80. Patient is very eager to leave after his imaging tests today. Review of Systems Constitutional: Reports: no symptoms. EENTM: Reports: no symptoms. Cardiovascular: Reports: no symptoms. Respiratory: Reports: no symptoms. Gastrointestinal: Reports: no symptoms. Genitourinary: Reports: no symptoms. Musculoskeletal: Reports: no symptoms. Neurological/Psychological: Reports: no symptoms. Objective Last 24 Hrs of Vital Signs/I&O Vital Signs Date Time Temp Pulse Resp B/P B/P Pulse O2 O2 Flow FiO2 Mean Ox Delivery Rate 03/07 0645 98.6 85 20 170/86 92 Room Air 03/07 0458 88 170/86 03/07 0010 82 94 03/07 0000 CPAP 03/06 2308 88 95 03/06 2007 98.4 80 20 140/78 93 Room Air 03/06 1941 97.4 83 18 146/88 98 Room Air Intake & Output 03/07 1600 03/07 0800 03/07 0000 Intake Total 1900 1020 300 Output Total 1000 Balance 1900 20 300 Intake, IV 1500 900 300 Intake, Oral 400 120 Output, Urine 1000 Patient 240 lb Weight Weight Bed scale Measurement Method Physical Exam General Appearance: Alert, Oriented X3, Cooperative, No Acute Distress Skin: No Rashes, No Breakdown, No Significant Lesion Skin Temp/Moisture Exam: Warm/Dry Sepsis Skin Exam (color): Normal for Ethnicity HEENT: Atraumatic, PERRLA, EOMI, Mucous Membr. moist/pink Cardiovascular: Regular Rate, Normal S1, Normal S2, No Murmurs Lungs: Clear to Auscultation, Normal Air Movement Abdomen: Normal Bowel Sounds, Soft, No Hepatospenomegaly, Positive Phipps's sign.no guarding. no rigid abdomen. Neurological: Normal Speech Extremities: No Clubbing, No Cyanosis, No Edema Vascular: Normal Pulses, Pulses Symmetrical Current Medications: Current Medications Sig/Cherie Start time Last Medication Dose Route Stop Time Status Admin Ampicillin Sodium/ 3,000 MG Q6 03/06 2359 03/07 Sulbactam Sodium IV 1127 Sodium Chloride 100 ML Enoxaparin Sodium 40 MG 03/06 03/06 SC 2222 Hydrochlorothiazide 12.5 MG DAILY 03/07 09 03/07 PO 0626 Lactated Ringer's 1,000 ML .Q5H 03/06 1730 DC 03/07 IV 0823 Lisinopril 20 MG DAILY 03/07 09 03/07 PO 0458 Morphine Sulfate 2 MG Q4P PRN 03/06 1900 AC IV Patient Medication 1 ED ONE ONE 03/07 1530 DC Teaching ED 03/07 1531 Last 24 Hrs of Lab/Omari Results Last 24 Hrs of Labs/Mics: Laboratory Tests 03/07/18 0630: Urine Color YEL, Urine Clarity CLEAR, Urine pH 6.0, Ur Specific [place] 1.020, Urine Protein NEG, Urine Ketones TRACE H, Urine Nitrite NEG, Urine Bilirubin NEG, Urine Urobilinogen 0.2, Ur Leukocyte Esterase NEG, Ur Microscopic EXAM NOT REQUIRED, Urine Hemoglobin NEG, Urine Glucose NEG 03/07/18 0340: Troponin I < 0.01 03/07/18 0340: Anion Gap 10, Estimated GFR > 60, BUN/Creatinine Ratio 25.0, Total Bilirubin 1.9 H, Direct Bilirubin 1.2 H, AST 178 H, ALT 337 H, Alkaline Phosphatase 275 H , Total Protein 5.9 L, Albumin 3.4 L, CBC w Diff NO MAN DIFF REQ, RBC 4.35 L, MCV 90.1, MCH 30.9, MCHC 34.3, RDW 13.0, MPV 8.1, Gran % 78.4 H, Lymphocytes % 15.9 L, Monocytes % 5.0, Eosinophils % 0.7, Basophils % 0, Absolute Granulocytes 10.0 H, Absolute Lymphocytes 2.0, Absolute Monocytes 0.6, Absolute Eosinophils 0.1, Absolute Basophils 0 03/06/182124: Troponin I < 0.01 Assessment/Plan Assessment: Patient is a 57-year-old male with past medical history significant for obstructive sleep apnea status post uvulopalatoplasty and on CPAP, hypertension who presented to ED with chief complaint of sudden onset epigastric abdominal pain radiated to the back with shortness of breath and diaphoresis. Pain suddenly resolved without getting any pain medication. Patient denied any previous similar attack, nausea, vomiting, diarrhea or constipation. He reported dark urine couple of weeks ago that resolved, no jaundice or aramis colored stool. Patient does not have any previous history of gallstone. Denied any blood in urine or stool. Patient was evaluated by GI and surgery in the ED. Patient was initially admitted to general med however he had EKG changes of T-wave inversion in lateral leads, trops negative 2. Patient was admitted to telemetry floor for continuous cardiac monitoring. Problem list Gallbladder stone Pancreatitis with elevated lipase however no signs of inflammation on CAT scan Elevated d-dimer with indeterminate CTA Hypertension Obstructive sleep apnea Plan Abdominal pain: Patient was never febrile. Normotensive. Does have positive Phipps's sign. -CT exam showed cholelithiasis with suggestion of faint pericholecystic inflammatory stranding and palpitation of the common bile duct which raises suspicion for acute cholecystitis. No inflammation of the pancreas was seen. However patient does have elevated lipase. Probably has some degree of pancreatitis. -Patient started on fluid resuscitation lactated Ringer's 200 mL per hour and Unasyn 3 g every 6 hours -Pain control pathway -Troponins and EKGs were negative for ACS -Chest CTA indeterminate for PE and d-dimer 5192, bilateral lower extremity ultrasound negative for DVT. Well's score 16.2% -Nothing by mouth and advance as tolerated -Liver function tests showed decreasing bilirubin and AST/LT and alkaline phosphatase. We will go ahead with MRCP to determine if patient has a bile duct stone and if one is found, ERCP will be carried out. -Note: MRCP was carried out today and showed no obstruction in the docs but cholelithiasis. Patient will be referred for elective cholecystectomy as soon as possible but, as he has malignant hyperthermia, our facility is not able to accommodate him for 2 days. The patient will contact surgeon outpatient, either Dr. Malik or a another doctor at [facility] where he has had previous surgeries and is familiar with the anesthesia team there. -Repeat BMP, CBCs and liver function test in a.m. EKG changes -Vitals every shift -Trops and EKGs negative for ACS Full code Problem List: 1. Cholelithiasis Pain Ratin Pain Location: na Pain Goal: Remain pain free Pain Plan: na Tomorrow's Labs & Rationales: cbc bep [facility] Mason Johnson 03/07/18 1427: Attending MD Review Statement Attending Statement Attending MD Statement: examined this patient, discuss w/resident/PA/TELECOMMUNICATIONS LINE INSTALLER, agreed w/resident/PA/TELECOMMUNICATIONS LINE INSTALLER, discussed with family, reviewed EMR data (avail), discussed with nursing, discussed with case mgmt, reviewed images, amended to note Attending Assessment/Plan: 57-year-old male with past history hypertension with CT abdomen shows cholelithiasis with pericholecystic inflammatory stranding and dilation of common bile duct. Patient admitted with Gallstone Cholelithiasis with Suspected ascending cholangitis and EKG changes non specific. Continue telemetry, NPO for now and planned MRCP, c/w Unasyn 3 g every 6 IV, follow GI for further management. Patient wants to leave AMA. Explained risk/benefits of ongoing medical management.
--- NOTE | 2018-03-07 14:01 | MRI REPORT ---
EXAMINATION: MR ABDOMEN WITHOUT CONTRAST/MRCP CLINICAL INFORMATION: Epigastric pain and stones found on CT scan. Presumptive diagnosis of choledocholithiasis. COMPARISON: None. TECHNIQUE: An MRI scan of the abdomen was performed using multiple imaging sequences and imaging planes. As per the MRCP protocol, heavily T2-weighted 3-D high-resolution MRCP sequences were obtained in the coronal plane along with thin and thick slab coronal images and coronal MIP reconstructions obtained on the technologist workstation under concurrent physician supervision. FINDINGS: LIVER: The liver is normal in size and signal. No hepatic steatosis is seen. No focal cystic or solid mass is present. GALLBLADDER/BILIARY TREE: The gallbladder is partially distended and completely filled with innumerable variably-sized gallstones. No gallbladder wall thickening or pericholecystic fluid is seen. No intrahepatic or extrahepatic ductal dilatation is seen. Common bile duct measures 0.6 cm. The common hepatic duct measures 0.5 cm. No evidence of choledocholithiasis is seen. The cystic duct appears unremarkable. PANCREAS: The pancreas is mildly atrophic, but otherwise unremarkable in appearance. No pancreatic ductal dilatation is seen. No ductal dilatation, mass or surrounding stranding is seen. SPLEEN: Normal size and appearance. Splenic vein patent. ADRENAL GLANDS AND KIDNEYS: Adrenal glands normal. Kidneys bilaterally symmetric in size and function. In the kidneys bilaterally, small subcentimeter sized low-attenuation masses are seen, most likely representing small cysts. No focal mass, hydronephrosis, or perinephric stranding. BOWEL LOOPS: Grossly within normal limits. LYMPHOVASCULAR STRUCTURES: Abdominal aorta normal in caliber. No periaortic collections. No abdominal adenopathy or free fluid collection. BONES: Mild disc desiccation is seen in the lower lumbar spine with posterior disc bulges also noted indenting the thecal sac. IMPRESSION: 1. Extensive cholelithiasis is seen with multiple gallstones filling the gallbladder lumen. No abnormal gallbladder wall thickening or pericholecystic fluid is seen. The previously seen dilatation of the common bile duct has resolved with the common hepatic and common bile ducts now appearing normal. 2. Atrophic pancreas. 3. Small renal masses, most consistent with small renal cysts. 4. No adenopathy.
[2018-03-07] MEDS ORDERED: CIPRO500 M1 PO ×2 (16:15→17:23)
[2018-03-07] MEDS ORDERED: FLAGYL500 MG PO ×2 (16:15→17:23)
--- NOTE | 2018-03-07 16:19 | Patient Discharge Instructions ---
Discharge Instructions General Discharge Information You were seen/treated for: cholelithiasis You had these procedures: MRCP Special Instructions: 1. please return in fever or feeling unwell, please call 911 and return to ED 2. please follow up with Dr. Malik surgeon or Dr. Lopez from [facility] for surgery. Diet Continue normal diet: No Recommended Diet: ADVANCE SLOWLY TOLERATED Activity Full Activity/No Limits: Yes ( TOLERATED) Acute Coronary Syndrome Inclusion Criteria At DC or during hospital stay patient has or had the following: ACS DIAGNOSIS No Discharge Core Measures Meds if any: Prescribed or Continued at Discharge Meds if any: NOT Prescribed or Continued at Discharge Congestive Heart Failure Inclusion Criteria At DC or during hospital stay patient has or had the following: CHF DIAGNOSIS No Discharge Core Measures Meds if any: Prescribed or Continued at Discharge Meds if any: NOT Prescribed or Continued at Discharge Cerebrovascular accident Inclusion Criteria At DC or during hospital stay patient has or had the following: CVA/TIA Diagnosis No Discharge Core Measures Meds if any: Prescribed or Continued at Discharge Meds if any: NOT Prescribed or Continued at Discharge Venous thromboembolism Inclusion Criteria VTE Diagnosis No VTE Type NONE VTE Confirmed by (Test) NONE Discharge Core Measures - Per Current guidelines, there needs to be overlap - treatment for the first 5 days of Warfarin therapy. - If discharged on Warfarin prior to 5 days of - overlap therapy, the patient will need to be - assessed for post discharge needs including - *Post discharge parental anticoagulation - *Warfarin and/or parental anticoagulation education - *Follow up date to check INR post discharge At least 5 days overlap therapy as Inpatient No Meds if any: Prescribed or Continued at Discharge Note: Overlap Therapy is Warfarin and Anticoagulant Meds if any: NOT Prescribed or Continued at Discharge
== END 2018-03-07 17:52 | DRG 446 ==
LOC: ERH 11:11 → 1NO 16:34 → ERHI 16:34 → CANRESERV 17:19 → ENRESERV 17:19 → EDBEDREQ 18:24 → 1NO 19:56
PROVIDERS: Physician Assistant Medical; Student in an Organized Health Care Education/Training Program
DX: K80.00 Calculus of gallbladder with acute cholecystitis without obstruction (principal); E66.9 Obesity, unspecified; G47.33 Obstructive sleep apnea (adult) (pediatric); J44.9 Chronic obstructive pulmonary disease, unspecified; Z88.4 Allergy status to anesthetic agent; Z68.36 Body mass index [BMI] 36.0-36.9, adult; I10 Essential (primary) hypertension; K80.10 Calculus of gallbladder with chronic cholecystitis without obstruction
CPT/HCPCS: 1NP; 74181; 36415; 36592; 71046; 74177; 81003; 82436; 87040; 93005; 93010; 93970; G0480; J1650; J7120